=== PATIENT | female | born 1975 | race Caucasian/White ===

== ENCOUNTER 2021-01-06 21:27 | Emergency (ER) | payer OTHER ==
[~2021-01-06 21:27] MED LIST: FLEXERIL 10 MG10 MG PO; Voltaren Gel 1 % TOP
[2021-01-06 22:07] LABS: HEMOGLOBIN 14.7 gm/dl (12.3-15.3); RED BLOOD COUNT 4.72 M/UL (4.00-5.10); WHITE BLOOD COUNT 15.5 K/UL (4.5-11.0)
[2021-01-06 22:33] LABS: BUN/CREATININE RATIO 17 (0-10)
== END 2021-01-06 23:15 | disposition home or self-care (01) ==
LOC: ER1 21:27
PROVIDERS: Physician Assistant
DX: R22.9 Localized swelling, mass and lump, unspecified (principal); R07.89 Other chest pain; E11.9 Type 2 diabetes mellitus without complications; Z90.710 Acquired absence of both cervix and uterus; F17.210 Nicotine dependence, cigarettes, uncomplicated
CPT/HCPCS: 71045; 80053; 82550; 82553; 83874; 84484; 85025; 93005; 99284

== ENCOUNTER → 2021-11-30 | Outpatient (CLI) | payer OTHER | LOC: KOH-I 14:30 | DX: M75.102 Unspecified rotator cuff tear or rupture of left shoulder, not specified as traumatic (principal); M19.012 Primary osteoarthritis, left shoulder | CPT/HCPCS: 73221 ==